=== PATIENT | male | born 1965 | race Caucasian/White ===

== ENCOUNTER 2018-05-18 08:50 | Emergency (ER) | payer BC ==
[2018-05-18] MEDS: NS 1,000 ML IV (09:15)
[2018-05-18] MEDS: ONDANSETRON 4MG/2ML VIAL (J2405) IV (09:32)
[2018-05-18] MEDS: KETOROLAC 30 MG/ML VIAL (J1885) IV (09:32)
[2018-05-18 09:34] LABS: KETONE, URINE AUTO RFX NEGATIVE (NEGATIVE); LEUKOCYTE ESTERASE UR AUTO RFX NEGATIVE (NEGATIVE); MUCUS, URINE RFX SMALL (NEGATIVE); NITRITE, URINE AUTO RFX NEGATIVE (NEGATIVE); RBC, URINE AUTO RFX TNTC /HPF (0-3); SPECIFIC GRAVITY UR AUTO RFX 1.021 (1.002-1.035); SQUAM EPITHELIAL CELL UR AURFX 0 /HPF (0-6); WBC, URINE AUTO RFX 14 /HPF (0-3); YEAST LIKE CELL URINE AUTO RFX SMALL
[2018-05-18 09:43] LABS: BASO # 0.1 10^3/uL (0.0-0.2); BASO % 0.7 % (0.0-1.0); EOS # 0.2 10^3/uL (0.0-0.50); HEMATOCRIT 46.5 % (42.0-52.0); HEMOGLOBIN 15.6 g/dl (13.5-17.5); IMMATURE GRANULOCYTE % 0.4 % (0-3.0); LYMPH # 1.9 10^3/uL (1.5-4.5); LYMPH % 25.7 % (24.0-44.0); MEAN CORPUSCULAR HEMOGLOBIN 30.4 pg (27.0-33.0); MEAN CORPUSCULAR HGB CONC 33.5 g/dl (32.0-36.5); MEAN CORPUSCULAR VOLUME 90.5 fl (80.0-96.0); MONO # 0.6 10^3/uL (0.0-0.8); MONO % 8.4 % (0.0-5.0); NEUTROPHILS # 4.6 10^3/uL (1.8-7.7); NEUTROPHILS % 61.8 % (36.0-66.0); PLATELET COUNT, AUTOMATED 408 10^3/uL (150-450); RED BLOOD COUNT 5.14 10^6/uL (4.30-6.10); RED CELL DISTRIBUTION WIDTH 12.9 % (11.5-14.5); WHITE BLOOD COUNT 7.4 10^3/uL (4.0-10.0)
[2018-05-18 10:01] LABS: ALBUMIN 3.5 GM/DL (3.2-5.2); ALBUMIN/GLOBULIN RATIO 0.92 (1.00-1.93); ALKALINE PHOSPHATASE 72 U/L (45-117); ALT/SGPT 41 U/L (12-78); ANION GAP 7 MEQ/L (8-16); AST/SGOT 25 U/L (7-37); BILIRUBIN,DIRECT < 0.1 MG/DL (0.0-0.2); BILIRUBIN,TOTAL 0.3 MG/DL (0.2-1.0); BLOOD UREA NITROGEN 13 MG/DL (7-18); CALCIUM LEVEL 8.2 MG/DL (8.5-10.1); CARBON DIOXIDE LEVEL 26 MEQ/L (21-32); CHLORIDE LEVEL 110 MEQ/L (98-107); CREATININE FOR GFR 1.03 MG/DL (0.70-1.30); GLOMERULAR FILTRATION RATE > 60.0 (>56); GLUCOSE, FASTING 98 MG/DL (70-100); LIPASE 167 U/L (73-393); POTASSIUM SERUM 4.3 MEQ/L (3.5-5.1); SODIUM LEVEL 143 MEQ/L (136-145); TOTAL PROTEIN 7.3 GM/DL (6.4-8.2)
== END 2018-05-18 10:55 | disposition home or self-care (01) ==
LOC: M ED 08:50
DX: N13.1 Hydronephrosis with ureteral stricture, not elsewhere classified (principal); N39.0 Urinary tract infection, site not specified; K21.9 Gastro-esophageal reflux disease without esophagitis; F32.9 Major depressive disorder, single episode, unspecified; Z79.899 Other long term (current) drug therapy
CPT/HCPCS: J2405

== ENCOUNTER 2019-08-11 11:49 | Emergency (ER) | payer BC ==
[~2019-08-11] VITALS: Ht 185.4 cm; Wt 119.4 kg
[~2019-08-11 11:49] MED LIST: CIPR-249 PO; DULO30CA9 PO; FLOM0.4C39 PO; OMEP40CA2 PO; PERC5TAB12 PO; ZOFR4TAB14 PO
[2019-08-11] MEDS ORDERED: BUPR150T3 PO (11:59)
[2019-08-11] MEDS ORDERED: LISI10TA4 PO (11:59)
[2019-08-11] MEDS ORDERED: AZO-95TA3 PO (11:59)
[2019-08-11] MEDS ORDERED: NAPR-837 PO (11:59)
[2019-08-11 12:39] LABS: BILIRUBIN, URINE MANUAL OBSCURED (NEGATIVE); GLUCOSE, URINE (UA) MANUAL OBSCURED mg/dL (NEGATIVE); KETONE, URINE MANUAL OBSCURED mg/dL (NEGATIVE); UROBILINOGEN, URINE MANUAL OBSCURED mg/dl (NORMAL)
[2019-08-11 12:51] LABS: BASO # 0.1 10^3/uL (0.0-0.2); BASO % 0.6 % (0.0-1.0); EOS # 0.4 10^3/uL (0.0-0.5); EOS % 4.4 % (0.0-3.0); HEMATOCRIT 44.6 % (42.0-52.0); HEMOGLOBIN 14.9 g/dl (13.5-17.5); LYMPH # 2.2 10^3/uL (1.5-5.0); MEAN CORPUSCULAR HEMOGLOBIN 30.5 pg (27.0-33.0); MEAN CORPUSCULAR HGB CONC 33.4 g/dl (32.0-36.5); MEAN CORPUSCULAR VOLUME 91.2 fl (80.0-96.0); MONO # 0.9 10^3/uL (0.0-0.8); MONO % 11.2 % (0.0-5.0); NEUTROPHILS # 4.5 10^3/uL (1.5-8.5); NEUTROPHILS % 56.3 % (36.0-66.0); PLATELET COUNT, AUTOMATED 359 10^3/uL (150-450); RED BLOOD COUNT 4.89 10^6/uL (4.30-6.10)
[2019-08-11 12:51] LABS: BACTERIA, URINE SMALL AMOUNT; HYALINE CAST, URINE NONE SEEN /lpf (0-1); SQUAMOUS EPITHELIAL CELL URINE SMALL AMOUNT /hpf (SMALL AMT)
[2019-08-11 13:14] LABS: ALBUMIN 3.9 GM/DL (3.2-5.2); BILIRUBIN,DIRECT 0.1 MG/DL (0.0-0.2); BILIRUBIN,TOTAL 0.5 MG/DL (0.2-1.0); CALCIUM LEVEL 9.6 MG/DL (8.5-10.1); CREATININE FOR GFR 1.38 MG/DL (0.70-1.30); GLOMERULAR FILTRATION RATE 57.4 (>56); POTASSIUM SERUM 4.7 MEQ/L (3.5-5.1); TOTAL PROTEIN 6.8 GM/DL (6.4-8.2)
[2019-08-11] MEDS ORDERED: KETOROLAC 30 MG/ML VIAL (J1885) IV ONE (13:45)
[2019-08-11] MEDS ORDERED: TAMSULOSIN 0.4 MG CAP PO ONE (13:45)
--- NOTE | 2019-08-11 14:03 | REP ---
REASON: Renal colic. COMPARISON: 05/18/2018 The lung bases are clear and unchanged. Limited evaluation of the solid intra-abdominal organs and gallbladder are essentially unchanged. There is no gross abnormality. Limited evaluation of the pancreas and adrenal glands shows no significant change. There is no gross abnormality. The right kidney is seen with two tiny nonobstructing calculi. There is no right-sided hydronephrosis or hydroureter. In the distal left ureter approximately 2 cm proximal to the ureterovesical junction, there is a 4 mm sized calcification. This calcification is resulting in mild left hydroureter and mild periureteral edema. There is mild to moderate left hydronephrosis. In the inferior pole of the left kidney, there is an additional calcification, which measures approximately 6 mm. This is not causing additional obstructive phenomenon. The abdominal aorta and para-aortic regions are within normal limits. No free fluid or free air is seen in the abdomen or pelvis. There are bilateral pelvic phleboliths, status quo. The intra-abdominal and intrapelvic bowel loops and their mesenteries are within normal limits. There is no change in the osseous structures. IMPRESSION: 1. Distal left ureterolith with resultant findings, as described above. 2. Additional nephroliths, as described above. Electronically Signed by Hardik Szymanski DO 08/11/2019 02:24 P
[2019-08-11] MEDS ORDERED: PERC5TAB12 PO (15:05)
[2019-08-11] MEDS ORDERED: ONDA4TAB6 PO (15:05)
[2019-08-11 15:11] VITALS: BP 129/77
== END 2019-08-11 15:33 | disposition home or self-care (01) ==
LOC: M ED 11:49
DX: N20.1 Calculus of ureter (principal); I10 Essential (primary) hypertension; Z87.442 Personal history of urinary calculi; M54.5 Low back pain; Z79.899 Other long term (current) drug therapy; Z79.1 Long term (current) use of non-steroidal anti-inflammatories (NSAID)
CPT/HCPCS: 74176; 80048; 80076; 81000; 83690; 85025; 87086; 96374; 99283; J1885